=== PATIENT | female | born 1955 | race Caucasian/White ===

== ENCOUNTER 2018-11-24 05:30 | Inpatient (IN) | payer MEDICARE, OTHER ==
[2018-11-16 14:46] LABS: BASOPHILS % (AUTO) 0.7 % (0-1); EOSINOPHILS # (AUTO) 0.2 X10'3 (0-0.9); EOSINOPHILS % (AUTO) 3.7 % (0-6); LYMPHOCYTES # (AUTO) 2.5 X10'3 (1.1-4.8); LYMPHOCYTES % (AUTO) 36.6 % (21-51); MEAN CORPUSCULAR HEMOGLOBIN 31.1 PG (27.0-31.0); MEAN CORPUSCULAR HGB CONC 33.8 g/dL (33.0-36.5); MEAN CORPUSCULAR VOLUME 92.1 FL (78-98); MEAN PLATELET VOLUME 8.9 FL (7.4-10.4); MONOCYTES # (AUTO) 0.5 X10'3 (0-0.9); MONOCYTES % (AUTO) 7.3 % (2-12); NEUTROPHILS # (AUTO) 3.5 X10'3 (1.8-7.7); NEUTROPHILS % (AUTO) 51.7 % (42-75); PRE OP HEMATOCRIT 44.4 % (35.0-45.0); PRE OP PLATELET COUNT 261 X10'3 (140-440); RED BLOOD COUNT 4.82 X10'6 (4.20-5.60); RED CELL DISTRIBUTION WIDTH 12.3 % (11.5-14.5)
[2018-11-16 15:08] LABS: ALBUMIN 3.7 G/DL (3.4-5.0); ALKALINE PHOSPHATASE 85 IU/L (46-116); BLOOD UREA NITROGEN 20 MG/DL (7-18); BUN/CREATININE RATIO 16.5 (6.6-38.0); CALCIUM 8.5 MG/DL (8.5-10.1); CHLORIDE 105 MMOL/L (99-107); CREATININE 1.21 MG/DL (0.40-0.90); PRE OP ALT 31 U/L (30-65); PRE OP ANION GAP 8 (8-16); PRE OP AST 20 U/L (10-37); PRE OP BILIRUB, TOTAL 0.3 MG/DL (0.0-1.0); PRE OP GLUCOSE 91 MG/DL (70-104); PRE OP POTASSIUM 3.4 MMOL/L (3.4-5.1); PRE OP SODIUM 141 MMOL/L (135-145); TOTAL CARBON DIOXIDE 27.6 MMOL/L (24-32); TOTAL PROTEIN 7.3 G/DL (6.4-8.2); eGFR 45 ML/MIN
[~2018-11-24] VITALS: Ht 162.6 cm; Wt 80.0 kg
[2018-11-24] VITALS (21 sets, daily range): BP systolic 81–137; BP diastolic 41–80
[~2018-11-24 05:30] MED LIST: EFF25T PO; TRAZ-251 PO; VANCOMYCIN 1,500MG inj. 1,500 MG in normal saline 250ml IV soln 280 ML IV ONE; acetaminophen 325mg tablet PO ONE; cefazolin/dext.iso 2gm/100 ML IV ONE; famotidine 20mg tablet PO ONE; gabapentin 300mg capsule PO ONE; metoclopramide 5 mg/ml inj IV ONE; oxyCODONE SR 10mg (sust. release) tab PO ONE; ringers solution, lacted 1,000 ML IV SCH; tranexamic acid inj. 1,000 MG in normal saline 100 ML IV ONE
[2018-11-24] MEDS ORDERED: LIDOcaine 1% (10mg/ml) 2ml vial ONE (06:10)
[2018-11-24] MEDS ORDERED: ketorolac trometh. 30mg/ml inj. ONE (06:38)
[2018-11-24] MEDS ORDERED: ceFAZolin 1000mg inj ONE (06:39)
[2018-11-24] MEDS ORDERED: ROPIVAcaine 0.5% (5mg/ml) 30ml vial ONE ×2 (06:39→07:13)
[2018-11-24] MEDS ORDERED: epiNEPHrine 1 mg/ml inj ONE (06:39)
[2018-11-24] MEDS ORDERED: Thrombin (Bovine) 5,000 unit vial TP ONE (06:39)
[2018-11-24] MEDS ORDERED: morphine 10mg/ml inj. ONE (06:39)
[2018-11-24] MEDS ORDERED: tetracaine 1% (10mg/ml) pres. free inj. ONE (07:14)
[2018-11-24] MEDS ORDERED: morphine /PF 1mg/ml 10ml inj. ONE (07:16)
[2018-11-24] MEDS ORDERED: fentaNYL/PF 50MCG/1 ML 2ML syringe ONE (07:16)
[2018-11-24] MEDS ORDERED: MIDAZolam 1mg/ml 10ml vial ONE (07:16)
[2018-11-24] MEDS ORDERED: LIDOcaine 2% (20mg/ml) 5ml vial ONE (07:17)
[2018-11-24] MEDS ORDERED: propofol inj 20 ML IV ONE ×2 (07:17)
[2018-11-24] MEDS ORDERED: ringers solution, lacted 1,000 ML IV SCH (07:22)
[2018-11-24] MEDS ORDERED: enalaprilat dihydrate 2.5mg/2ml vial IV PRN (07:25)
[2018-11-24] MEDS ORDERED: morphine 4 MG/ML inj SYRINge IV PRN ×2 (07:25)
[2018-11-24] MEDS ORDERED: ondansetron/PF 4mg/2ml inj IV PRN ×3 (07:25→09:50)
[2018-11-24] MEDS ORDERED: labetalol 20mg/4ml (5mg/ml) syringe IV PRN (07:25)
[2018-11-24] MEDS ORDERED: fentaNYL/PF 50MCG/1 ML 2ML syringe IV PRN ×2 (07:25)
[2018-11-24] MEDS ORDERED: phenylephrine 10mg/ml inj. ONE (08:01)
[2018-11-24] MEDS ORDERED: diphenhydrAMINE 50 mg/ml inj ONE (08:13)
[2018-11-24] MEDS ORDERED: vancomycin 1,000mg inj ONE (08:15)
[2018-11-24] MEDS ORDERED: calcium chloride 100 MG/1 ML inj IV ONE (08:15)
[2018-11-24] MEDS ORDERED: diphenhydrAMINE 50 mg/ml inj IV PRN (08:35)
[2018-11-24] MEDS ORDERED: dexamethasone sod phosphate 4mg/ml inj. ONE (09:08)
[2018-11-24] MEDS ORDERED: albumin (Human) 5% 250ml 250 ML IV ONE ×2 (09:33→09:41)
[2018-11-24] MEDS: potassium cl 20mEq in 1/2 NS 1,000 ML IV SCH ×2 (09:48→20:05)
[2018-11-24] MEDS ORDERED: HYDROmorphone inj. 0.5 MG/0.5 ML DISP.SYRIN IV PRN (09:50)
[2018-11-24] MEDS ORDERED: magnesium hydroxide 30ml (MOM) UD suspension PO PRN (09:50)
[2018-11-24] MEDS ORDERED: acetaminophen 325mg tablet PO PRN (09:50)
[2018-11-24] MEDS ORDERED: diphenhydrAMINE 25mg capsule PO PRN ×2 (09:50)
[2018-11-24] MEDS ORDERED: bisacodyl 10mg suppository rectal RC PRN (09:50)
[2018-11-24] MEDS ORDERED: oxyCODONE IR 5mg (immed. release) tablet PO PRN (09:50)
--- NOTE | 2018-11-24 10:00 | NUR ---
Received from OR via ORTHO BED WITH [facility] , accompanied by Anesthesiologist MONIQUE and report given by Anesthesiolgist. DENIES PAIN AT THIS TIME. NERVE BLOCK IN PLACE TO LEFT HIP AREA. KNEE WRAP AND COLD PACK IN PLACE. PATIENT WITH 10L MASK ON WITH 100% SATURATIONS AT THIS TIME. VSS. POWDER PACK AND KNEE WRAP PRESENT TO LEFT KNEE AND ARE CDI. Addendum: 11/24/18 at 1009 by Liam Cesar RN, RN Amended: Links added.
[2018-11-24] MEDS: ROPIVAcaine 0.2%/PF PAIN PUMP 400 ML IJ SCH (10:11)
--- NOTE | 2018-11-24 11:36 | NUR ---
ALL CRITERIA FOR TRANSFER TO THE FLOOR HAS BEEN ACHIEVED. VSS. BED LOW, CALL LIGHT AND VS. SET IN PLACE. RN PRESENT TO ACCEPT CARE. PATIENT RESTING COMFORTABLY IN BED. BELONGINGS SENT WITH PATIENT. DRESSINGS CDI. GUS PRESENT TO ACCEPT CARE OF PATIENT. 2 BAGS OF BELONGING IN CLOSET OF 4022B. Addendum: 11/24/18 at 1144 by Liam Cesar RN, RN Amended: Links added.
[2018-11-24] MEDS ORDERED: tranexamic acid inj. 800 MG in normal saline 100ml IV soln 100 ML IV ONE (13:00)
[2018-11-24] MEDS ORDERED: scopolamine 1.5mg patch.TD72 TD ONE (15:20)
[2018-11-24] MEDS: ceFAZolin 1GM/D5W- ADD-VANTAGE 50 ML IV SCH (19:58)
[2018-11-24] MEDS ORDERED: vancomycin/NS 1 GM ADD-VANTAGE 250 ML IV SCH (20:00)
[2018-11-24] MEDS: oxyCODONE IR 5mg (immed. release) tablet PO PRN (20:09)
[2018-11-24] MEDS: sennosides 8.6mg tablet PO SCH (20:51)
[2018-11-24] MEDS: acetaminophen 325mg tablet PO SCH (20:52)
[2018-11-24] MEDS: venlafaxine 25mg tablet PO SCH (22:17)
[2018-11-24] MEDS: traZODone 50mg tablet PO SCH (22:17)
[2018-11-25] MEDS: HYDROmorphone 1 mg/ml syringe IV PRN ×2 (00:29→05:00)
[2018-11-25] MEDS: potassium cl 20mEq in 1/2 NS 1,000 ML IV SCH ×3 (01:48→14:45)
[2018-11-25 02:00] VITALS: BP 110/56
[2018-11-25] MEDS: acetaminophen 325mg tablet PO SCH ×4 (02:00→20:48)
[2018-11-25] MEDS: oxyCODONE IR 5mg (immed. release) tablet PO PRN ×5 (02:17→22:48)
[2018-11-25] MEDS: ceFAZolin 1GM/D5W- ADD-VANTAGE 50 ML IV SCH (02:17)
[2018-11-25 06:00] VITALS: BP 119/59
[2018-11-25 06:15] LABS: BASOPHILS % (AUTO) 0.4 % (0-1); EOSINOPHILS # (AUTO) 0.1 X10'3 (0-0.9); EOSINOPHILS % (AUTO) 0.8 % (0-6); HEMATOCRIT 35.1 % (35.0-45.0); LYMPHOCYTES # (AUTO) 1.9 X10'3 (1.1-4.8); LYMPHOCYTES % (AUTO) 21.9 % (21-51); MEAN CORPUSCULAR HEMOGLOBIN 31.8 PG (27.0-31.0); MEAN CORPUSCULAR VOLUME 93.5 FL (78-98); MEAN PLATELET VOLUME 8.9 FL (7.4-10.4); NEUTROPHILS # (AUTO) 5.9 X10'3 (1.8-7.7); NEUTROPHILS % (AUTO) 65.9 % (42-75); PLATELET COUNT 189 X10'3 (140-440); RED BLOOD COUNT 3.76 X10'6 (4.20-5.60); RED CELL DISTRIBUTION WIDTH 12.3 % (11.5-14.5); WHITE BLOOD COUNT 8.9 X10'3 (4.5-11.0)
--- NOTE | 2018-11-25 06:20 | NUR ---
Patient in room ORTHO 4022. I have received report from CURTIS DE PAZ and had the opportunity to ask questions and assume patient care.
--- NOTE | 2018-11-25 06:24 | NUR ---
REPORT GIVEN TO [address].
[2018-11-25] MEDS: gabapentin 300mg capsule PO SCH ×5 (07:18→20:48)
[2018-11-25] MEDS: aspirin 325mg tablet PO SCH (08:24)
[2018-11-25] MEDS ORDERED: ASPI-1 PO (09:39)
--- NOTE | 2018-11-25 14:33 | NUR ---
Joint replacement consult: Pt seen by BERHANE for written/verbal high protein ed. RD reviewed high protein needs for wound healing, immune strength, high protein foods, and protein supplementation options. RD contact information provided in case of further questions. Agrees to gabby/malalarosa MA; and dietary notified. Addendum: 11/25/18 at [address] Amended: Links added.
[2018-11-25 18:00] VITALS: BP 141/54
--- NOTE | 2018-11-25 18:05 | NUR ---
Problems reprioritized. Patient report given, questions answered & plan of care reviewed with LAZARA DE PAZ.
--- NOTE | 2018-11-25 18:36 | NUR ---
Patient in room ORTHO 4022. I have received report from Janeen DE PAZ and had the opportunity to ask questions and assume patient care.
[2018-11-25] MEDS: celeCOXIB 100mg capsule PO SCH (20:47)
[2018-11-25] MEDS: sennosides 8.6mg tablet PO SCH (20:48)
[2018-11-25] MEDS: traZODone 50mg tablet PO SCH (20:48)
[2018-11-25] MEDS: venlafaxine 25mg tablet PO SCH (20:48)
[2018-11-25 22:00] VITALS: BP 130/58
[2018-11-26] MEDS: acetaminophen 325mg tablet PO SCH ×2 (02:09→08:28)
[2018-11-26] MEDS: oxyCODONE IR 5mg (immed. release) tablet PO PRN (04:49)
[2018-11-26 05:19] LABS: BASOPHILS % (AUTO) 0.5 % (0-1); EOSINOPHILS # (AUTO) 0.2 X10'3 (0-0.9); EOSINOPHILS % (AUTO) 2.1 % (0-6); HEMATOCRIT 33.5 % (35.0-45.0); HEMOGLOBIN 11.6 g/dl (12.0-16.0); LYMPHOCYTES % (AUTO) 24.9 % (21-51); MEAN CORPUSCULAR HEMOGLOBIN 31.8 PG (27.0-31.0); MEAN CORPUSCULAR HGB CONC 34.6 g/dL (33.0-36.5); MEAN PLATELET VOLUME 9.3 FL (7.4-10.4); MONOCYTES % (AUTO) 12.8 % (2-12); NEUTROPHILS # (AUTO) 4.8 X10'3 (1.8-7.7); NEUTROPHILS % (AUTO) 59.7 % (42-75); PLATELET COUNT 169 X10'3 (140-440); RED BLOOD COUNT 3.64 X10'6 (4.20-5.60); RED CELL DISTRIBUTION WIDTH 12.3 % (11.5-14.5); WHITE BLOOD COUNT 8.1 X10'3 (4.5-11.0)
[2018-11-26 06:00] VITALS: BP 109/43
--- NOTE | 2018-11-26 06:35 | NUR ---
Problems reprioritized. Patient report given, questions answered & plan of care reviewed with Monique DE PAZ.
[2018-11-26] MEDS: celeCOXIB 100mg capsule PO SCH (08:28)
[2018-11-26] MEDS: gabapentin 300mg capsule PO SCH (08:28)
[2018-11-26] MEDS: aspirin 325mg tablet PO SCH (08:28)
[2018-11-26] MEDS: ROPIVAcaine 0.2%/PF PAIN PUMP 400 ML IJ SCH (08:31)
[2018-11-26] MEDS ORDERED: acetaminophen 325mg tablet PO PRN (09:50)
[2018-11-26 10:00] VITALS: BP_SYST 109; BP_SYST 113; BP_DIAS 43; BP_DIAS 51
--- NOTE | 2018-11-26 14:30 | NUR ---
Patient stable for discharge home today with . All DC instructions and questioned answered. NADIYA and ON-Q education provided. IV out and all belongings sent with patient.
== END 2018-11-26 14:39 | disposition home health service (06) | DRG 470 ==
LOC: PAS IN 05:30 → EDSTATUS 07:30 → ORTHO 4S 12:30
PROVIDERS: ADMIT Orthopaedic Surgery; ATTEND Orthopaedic Surgery
PROC: 3E0T3BZ Introduction of Anesthetic Agent into Peripheral Nerves and Plexi, Percutaneous Approach (ICD-10-PCS; 2018-11-24)
PROC: 0SRD0L9 Replacement of Left Knee Joint with Medial Unicondylar Synthetic Substitute, Cemented, Open Approach (ICD-10-PCS; principal; 2018-11-24 07:18)
DX: M17.12 Unilateral primary osteoarthritis, left knee (principal); K21.9 Gastro-esophageal reflux disease without esophagitis; N18.3 Chronic kidney disease, stage 3 (moderate); F32.9 Major depressive disorder, single episode, unspecified; Z79.899 Other long term (current) drug therapy; Z88.8 Allergy status to other drugs, medicaments and biological substances
CPT/HCPCS: 36415; 80053; 82948; 85025; 87070; 93005; 97110; 97116; 97162; 97530; A6455; A7000; C1713; C1758; C1776; G0378; J0171; J0690; J1100; J1170; J1200; J1885; J2001; J2250; J2270; J2274; J2370; J2405; J2704; J2765; J2795; J3010; J3370; J3490; J7030; J7120; P9045; Q0163